=== PATIENT | male | born 1995 | race African-American/Black ===

== ENCOUNTER 2019-07-06 15:22 | Emergency (ER) | payer OTHER ==
[~2019-07-06] VITALS: Ht 193 cm; Wt 86.2 kg
--- NOTE | 2019-07-06 15:52 | Emergency Room Report ---
History of Present Illness General Chief Complaint: Medical Clearance Source: EMS Present Illness HPI 24-year-old male with unknown past medical history brought in by [employer] for medical clearance. Patient keeps crying and does not answer questions. Originally he complains of left wrist pain however denies fall or injury. Both wrists are handcuffed to the gurney and no bony tenderness noted. No signs of trauma noted. Patient does not respond to my question when asked if he is in pain or has any other complaint. Patient finally says that he has a broken heart and wanted to be fixed. Denies chest pain, shortness of breath, palpitation, when asked if there is any specific chest pain he denies. Patient was repeatedly asked to cooperate however refused to answer any questions and was medically cleared to go. Allergies: Coded Allergies: No Known Allergies (Unverified , 07/06/19) Patient History Past Medical History: see triage record Past Surgical History: unable to obtain Pertinent Family History: unable to obtain Reviewed Nursing Documentation: PMH: Agreed; PSxH: Agreed Nursing Documentation-PMH Past Medical History: No Stated History Review of Systems All Other Systems: negative except mentioned in HPI Physical Exam Vital Signs Date Time Temp Pulse Resp B/P (MAP) Pulse Ox O2 Delivery O2 Flow Rate FiO2 07/06/19 15:12 98.2 98 18 130/70 (90) 99 Room Air General Appearance: alert, GCS 15 Head: normocephalic, atraumatic ENT: hearing grossly normal, EOM grossly intact Neck: full range of motion, supple/symm/no masses Respiratory: chest non-tender, lungs clear, normal breath sounds, no rhonchi, no wheezing Cardiovascular #1: regular rate, rhythm, no edema, no murmur Cardiovascular #2: 2+ radial (R), 2+ radial (L) Gastrointestinal: non tender, soft Musculoskeletal: back normal, decreased range of motion, normal range of motion , digits/nails normal, non-tender Neurologic: alert, motor strength/tone normal, oriented x3, sensory intact, responsive, speech normal Skin: no rash Lymphatic: no adenopathy Medical Decision Making PA Attestation All my diagnosis and treatment plans were reviewed ad discussed with my supervising physician Dr. Godoy Diagnostic Impression: Primary Impression: Generalized body aches Additional Impression: Wrist contusion ER Course 24-year-old male with unknown past medical history brought in by [employer] for medical clearance. Patient keeps crying and does not answer questions. Originally he complains of left wrist pain however denies fall or injury. Both wrists are handcuffed to the gurney and no bony tenderness noted. No signs of trauma noted. Patient does not respond to my question when asked if he is in pain or has any other complaint. Patient finally says that he has a broken heart and wanted to be fixed. Denies chest pain, shortness of breath, palpitation, when asked if there is any specific chest pain he denies. Patient was repeatedly asked to cooperate however refused to answer any questions and was medically cleared to go. Patient reports that everywhere hurts however does not specify what type of pain he is having and has full range of motion Ddx considered but are not limited to: Generalized body aches, wrist sprain, wrist fracture, wrist contusion Vital signs: are WNL, pt. is afebrile H&PE are most consistent with: Wrist contusion, generalized body aches ORDERS: none required at this time, the diagnosis is clinical. No x-ray needed as patient did not fall or injure himself and has full range of motion no bony tenderness noted. ED INTERVENTIONS: Motrin DISCHARGE: At this time pt. is stable for d/c to home. Will provide printed patient care instructions, and any necessary prescriptions. Care plan and follow up instructions have been discussed with the patient prior to discharge. Patient was discharged and was medically cleared however was advised to follow -up with primary care provider or return to emergency room for any worsening or new symptoms Last Vital Signs Date Time Temp Pulse Resp B/P (MAP) Pulse Ox O2 Delivery O2 Flow Rate FiO2 07/06/19 15:12 98.2 98 18 130/70 (90) 99 Room Air Disposition: HOME, SELF-CARE Condition: Stable Patient Instructions: Contusion Greta Aviles Jul 06, 2019 15:52
--- NOTE | 2019-07-06 16:07 | NUR ---
ED Nurse Note: pt came in via [facility] in custody c/o left wrist pain . [employer] [facility] [id number] ryley Benedict and partner at bedside reinaldo loco done pt medicated and spit out the motrin.
[2019-07-06 16:09] VITALS: BP 130/70
[2019-07-06 16:16] VITALS: BP 130/70
--- NOTE | 2019-07-06 16:19 | NUR ---
ED Nurse Note: Pt cleared by health care Provider for discharge. DC instructions was given and explained to pt and verbalized understanding of teachings. All medical deviecs such as ID band removed. Pt is AAO x4, ambulatory and left with all personal belongings in custody of [employer] .
== END 2019-07-06 16:00 | disposition home or self-care (01) ==
LOC: EDBD 15:22 → EMR 15:52
DX: S60.212A Contusion of left wrist, initial encounter (principal); R52 Pain, unspecified; X58.XXXA Exposure to other specified factors, initial encounter; Y93.9 Activity, unspecified; Y92.9 Unspecified place or not applicable
CPT/HCPCS: 99283